=== PATIENT | male | born 1965 | race African-American/Black ===

== ENCOUNTER 2019-12-16 17:12 | Emergency (ER) | payer OTHER ==
[2019-12-16 18:03] LABS: ABSOLUTE BASOPHILS # (AUTO) 0.1 10^3/uL (0.0-0.2); ABSOLUTE LYMPHOCYTES (AUTO) 2.1 10^3/uL (0.5-4.7); ABSOLUTE MONOCYTES (AUTO) 0.8 10^3/uL (0.1-1.4); ABSOLUTE NEUT (AUTO) 14.5 10^3/uL (1.7-8.2); BASOPHILS % (AUTO) 0.8 % (0-2); EOSINOPHILS % (AUTO) 0.1 % (0-6); HEMATOCRIT 46.7 % (37.9-51.0); HEMOGLOBIN 15.4 g/dL (13.5-17.0); LYMPHOCYTES % (AUTO) 12.1 % (13-45); MEAN CORPUSCULAR HEMOGLOBIN 28.2 pg (27.0-33.4); MEAN CORPUSCULAR HGB CONC 33.1 g/dL (32.0-36.0); MEAN CORPUSCULAR VOLUME 85 fl (80-97); MONOCYTES % (AUTO) 4.7 % (3-13); PLATELET COUNT 273 10^3/uL (150-450); RED BLOOD COUNT 5.48 10^6/uL (4.35-5.55); RED CELL DISTRIBUTION WIDTH 12.4 % (11.5-14.0); SEGMENTED NEUTROPHILS % (AUTO) 82.3 % (42-78); TOTAL CELLS COUNTED % (AUTO) 100 %; WHITE BLOOD COUNT 17.6 10^3/uL (4.0-10.5)
[2019-12-16 18:20] LABS: ALBUMIN 4.2 g/dL (3.5-5.0); ALKALINE PHOSPHATASE 111 U/L (38-126); ANION GAP 12 (5-19); ASPARTATE AMINO TRANSFERASE 14 U/L (17-59); BILIRUBIN,TOTAL 1.1 mg/dL (0.2-1.3); BLOOD UREA NITROGEN 10 mg/dL (7-20); CALCIUM 9.6 mg/dL (8.4-10.2); CARBON DIOXIDE 23 mmol/L (22-30); CHLORIDE 98 mmol/L (98-107); CREATINE KINASE 38 U/L (55-170); POTASSIUM 4.5 mmol/L (3.6-5.0); TOTAL PROTEIN 7.7 g/dL (6.3-8.2)
[2019-12-16 18:28] LABS: GLUCOSE 426 mg/dL (75-110)
[2019-12-16 18:32] LABS: CREATINE KINASE MB 0.54 ng/mL (<4.55)
[2019-12-16 18:33] LABS: TROPONIN I < 0.012 ng/mL
--- NOTE | 2019-12-16 19:00 | ER Document Report ---
ED General - General Chief Complaint: Dizziness Stated Complaint: DIZZINESS Time Seen by Provider: 12/16/19 18:14 - HPI Notes: Patient is a 54-year-old male who presents to the emergency department for evaluation of difficulty swallowing, left arm tingling. He states that last night after dinner he started feeling dizzy. He denied any sensation of spinning, states it was really just lightheaded. Later on that night he noticed a change in the sensation of his left upper extremity. He states that something felt hot in his hand, when it was actually cold. He states since then he started having difficulty swallowing as well. He states he feels like his throat is swollen and he cannot swallow. He has a history of stroke with residual left leg weakness and numbness. He states that is unchanged. He has been taking his medications as prescribed. Patient states he has had some intermittent burning in his epigastrium region. He states that he had about 3 episodes of that today. It only lasts a few seconds. Nothing seems to make it better or worse. - Related Data Allergies/Adverse Reactions: No Known Allergies Allergy (Unverified 12/16/19 23:05) Home Medications: Metformin. Amlodipine. Plavix-CVA. Losartan. Atorvastatin. Asa 81mg. Metoprolol. Hydrochlorothiazide Past Medical History - General Information source: Patient - Social History Smoking Status: Never Smoker Chew tobacco use (# tins/day): No Frequency of alcohol use: None Drug Abuse: None Family History: CAD, Hypertension Patient has homicidal ideation: No - Past Medical History Cardiac Medical History: Reports: Hx Coronary Artery Disease, Hx Hypercholesterolemia, Hx Hypertension Denies: Hx Atrial Fibrillation Pulmonary Medical History: Denies: Hx Asthma, Hx COPD Neurological Medical History: Reports: Hx Cerebrovascular Accident - Residual left leg weakness and sensation alteration Endocrine Medical History: Reports: Hx Diabetes Mellitus Type 2 Renal/ Medical History: Denies: Hx Kidney Stones, Hx Renal Insufficiency Malignancy Medical History: Reports None GI Medical History: Reports: None Past Surgical History: Reports: Hx Coronary Artery Bypass Graft Review of Systems - Review of Systems Cardiovascular: See HPI Gastrointestinal: See HPI Neurological/Psychological: See HPI -: Yes All other systems reviewed and negative Physical Exam - Vital signs Vitals: Temp Pulse Resp BP Pulse Ox 98.2 F 88 15 152/87 H 97 12/16/19 17:15 12/16/19 17:15 12/16/19 17:15 12/16/19 17:15 12/16/19 17:15 - Notes Notes: Vital signs reviewed, please refer to chart. Head is normocephalic, atraumatic. Pupils equal round, reactive to light. Oral mucosa is moist, uvula is midline. Neck is supple without meningismus. Heart is regular rate and rhythm. Lungs are clear to auscultation bilaterally. Abdomen is soft, nontender, normoactive bowel sounds throughout. Extremities without cyanosis, clubbing. Posterior calves are nontender. Peripheral pulses are equal. Skin is warm and dry. Patient is awake, alert, oriented x3. Cranial nerves II - XII are grossly intact without focal neurological deficits. Strength is plus 5 out of 5 bilateral upper and lower extremities. Sensation is intact. Patellar and Achilles reflexes 2+ on the left, 1+ on the right. Intact [id number], rapid alternating movements, [id number]. Course - Re-evaluation Re-evalutation: 12/16/19 18:59 Patient presents to the emergency department for evaluation. Laboratory investigations and images ordered through stroke protocol. I am concerned as this patient still states he is having difficulty swallowing. He has a history of stroke. I am not finding any clear and obvious neurological deficits beyond those he reports, but the patient has multiple risk factors. I will order an MRI of the brain as CT scan of the head is unremarkable. His symptoms started last night, he is well outside the window for any sort of TPA intervention. Patient's blood glucose is over 400, we will cover this with insulin. He is not showing any signs of acidosis. Patient is stable, we will continue to monitor. 12/16/19 22:45 Patient remained stable. He still feels as if he is having trouble swallowing. He does have a very mild change in sensorium in the left upper extremity. MRI shows area of subacute infarct in the right medulla. I will consult with neurology from [facility]. The patient states he has had a work-up last year in [place]. 12/16/19 22:57 I spoke with Natacha Loyd, nurse practitioner on for neurology. She states the patient can be taken to [facility], admit to medicine. They will see in consult and set up for follow-up. 12/16/19 23:[address] High, medicine physician, who graciously accepted the patient. It is communicated that it may be some time until a bed is available. 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 He does not want to wait to go to [place]. He has elected to sign out AGAINST MEDICAL ADVICE. I explained to him that he could have worsening of his symptoms. I do not have a clear etiology for his stroke. I am unsure as to whether or not he had a complete work-up when he lived in [place]. He voiced understanding to all of this, understands that he has an increased risk of comorbidities and , and still wishes to sign out AGAINST MEDICAL ADVICE. I will obtain on-call neurology information from [facility], and discharge the patient AGAINST MEDICAL ADVICE. He understands he can return to the ED at any time should he change his mind. - Vital Signs Vital signs: Temp Pulse Resp BP Pulse Ox 98.2 F 91 18 166/94 H 95 12/16/19 17:22 12/16/19 20:15 12/16/19 20:15 12/16/19 20:15 12/16/19 20:15 - Laboratory Result Diagrams: 12/16/19 17:53 12/16/19 17:53 Laboratory results interpreted by me: 12/16/19 12/16/19 17:53 17:53 WBC 17.6 H Lymph % (Auto) 12.1 L Absolute Neuts (auto) 14.5 H Seg Neutrophils % 82.3 H Sodium 132.8 L Glucose 426 H* AST 14 L Creatine Kinase 38 L - Diagnostic Test Radiology reviewed: Reports reviewed Radiology results interpreted by me: 12/16/19 22:[address] 12/16/19 18:31 IMPRESSION: NO ACUTE INTRACRANIAL IMAGING FINDINGS. EVIDENCE OF ACUTE STROKE: NO. Head MRI 12/16/19 19:00 IMPRESSION: Small focus of probable acute ischemia of the right medulla greater than eight hours old. Sequela of additional prior insults elsewhere. This may be on the basis of small vessel disease. - EKG Interpretation by Me Additional EKG results interpreted by me: 12/16/19 19:00 Sinus mechanism with rate of 89 bpm. Normal axis. Borderline prolongation of the QT interval. Nonspecific T wave changes, but no ST elevation concerning for infarction. No old studies available for comparison. Discharge - Discharge Clinical Impression: CVA (cerebral vascular accident) Qualifiers: CVA mechanism: unspecified Qualified Code(s): I63.9 - Cerebral infarction, unspecified Hyperglycemia due to type 2 diabetes mellitus Qualifiers: Diabetes mellitus [employer] insulin use: unspecified [facility] insulin use status Qualified Code(s): E11.65 - Type 2 diabetes mellitus with hyperglycemia Disposition: AGAINST MEDICAL ADVICE Admitting Provider: Lennox Instructions: Stroke ([facility]) Additional Instructions: I believe that your symptoms today have been caused by a new stroke. You have elected to leave AGAINST MEDICAL ADVICE, instead of waiting to be transferred to [facility] for further evaluation. Please follow-up with their on-call neurologist - call the neurology group listed below for an outpatient follow-up appointment. If you change your mind, you develop difficulty speaking or seeing, increased difficulty swallowing, difficulty moving an arm or leg, asymmetry of the face, or any other new or concerning symptoms, please return immediately to the emergency department for evaluation. [facility] Neurology
--- NOTE | 2019-12-16 19:15 | RADIOLOGY REPORT (SQ) ---
EXAM DESCRIPTION: CT HEAD WITHOUT IMAGES COMPLETED DATE/TIME: 12/16/2019 5:46 pm REASON FOR STUDY: r/o CVA COMPARISON: None. TECHNIQUE: Axial images acquired through the brain without intravenous contrast. Images reviewed wi th bone, brain and subdural windows. Additional sagittal and coronal reconstructions were generated. Images stored on PACS. All CT scanners at this facility use dose modulation, iterative reconstruction, and/or weight based d osing when appropriate to reduce radiation dose to as low as reasonably achievable (ALARA). [facility]: Dose Right [facility]: CareDose [facility]: Dose Right [facility]: Teradose 4D [facility]: Smart [employer] RADIATION DOSE: CT Rad equipment meets quality standard of care and radiation dose reduction techniq ues were employed. CTDIvol: 53.2 mGy. DLP: 964 mGy-cm. mGy. LIMITATIONS: None. FINDINGS: VENTRICLES: Normal size and contour. CEREBRUM: No masses. No hemorrhage. No midline shift. No evidence for acute infarction. Normal gra y/white matter differentiation. No areas of low density in the white matter. CEREBELLUM: No masses. No hemorrhage. No alteration of density. No evidence for acute infarction. EXTRAAXIAL SPACES: No fluid collections. No masses. ORBITS AND GLOBE: No intra- or extraconal masses. Normal contour of globe without masses. CALVARIUM: No fracture. PARANASAL SINUSES: No fluid or mucosal thickening. SOFT TISSUES: No mass or hematoma. OTHER: No other significant finding. IMPRESSION: NO ACUTE INTRACRANIAL IMAGING FINDINGS. EVIDENCE OF ACUTE STROKE: NO. COMMENT: Quality ID # 436: Final reports with documentation of one or more dose reduction techniques (e.g., Automated exposure control, adjustment of the mA and/or kV according to patient size, use of iterative reconstruction technique) TECHNICAL DOCUMENTATION: JOB ID: [id number] 2010 [employer]- All Rights Reserved Reading location - IP/workstation name: [email or web address]
--- NOTE | 2019-12-16 20:28 | RADIOLOGY REPORT (SQ) ---
EXAM DESCRIPTION: MR BRAIN WITHOUT IV CONTRAST COMPLETED DATE/TME: 12/16/2019 19:00 CLINICAL HISTORY: 54 years, Male, dysphagia, left arm sensation change EXAM DESCRIPTION: CLINICAL HISTORY: dysphagia, left arm sensation change COMPARISON: None TECHNIQUE: Multiplanar multisequence imaging of the brain without the intravenous administration of contrast. FINDINGS: There is a focus of abnormally restricted diffusion measuring approximately 4 mm in the right medulla. There is probable subtle corresponding mild reduction in ADC signal. There is corresponding increased T2 signal consistent with ischemia greater than eight hours old. Patient motion limits detail. No other evidence of acute ischemia elsewhere. Scattered foci of increased T2 signal intensity elsewhere do not exert significant mass effect on surrounding structures and may be sequela of prior insult, most likely on the basis of small vessel disease. There is no other evidence of acute mass, mass effect, midline shift or hemorrhage. No focal abnormal extra-axial fluid collection is seen. The ventricles, basal cisterns and extra-axial fluid spaces are normal in size and configuration. IMPRESSION: Small focus of probable acute ischemia of the right medulla greater than eight hours old. Sequela of additional prior insults elsewhere. This may be on the basis of small vessel disease.
--- NOTE | 2019-12-16 22:07 | EKG REPORT ---
SEVERITY:- BORDERLINE ECG - SINUS RHYTHM BORDERLINE T ABNORMALITIES, ANT-LAT LEADS BORDERLINE PROLONGED QT INTERVAL : Confirmed by: Tawanda Lopez 16-Dec-2019 22:06:20
[2019-12-17 00:14] VITALS: BP 169/118
== END 2019-12-17 00:15 | disposition left against medical advice (07) ==
LOC: ER 17:12
DX: I63.9 Cerebral infarction, unspecified (principal); E11.65 Type 2 diabetes mellitus with hyperglycemia; R42 Dizziness and giddiness; R20.2 Paresthesia of skin; I69.954 Hemiplegia and hemiparesis following unspecified cerebrovascular disease affecting left non-dominant side; I69.998 Other sequelae following unspecified cerebrovascular disease; R20.8 Other disturbances of skin sensation; E78.00 Pure hypercholesterolemia, unspecified; I10 Essential (primary) hypertension; Z79.4 Long term (current) use of insulin; Z79.82 Long term (current) use of aspirin; Z79.02 Long term (current) use of antithrombotics/antiplatelets; Z95.1 Presence of aortocoronary bypass graft
CPT/HCPCS: 36415; 70450; 70551; 80053; 82550; 82553; 84484; 85025; 93005; 93010; 99284

== ENCOUNTER 2019-12-19 15:34 | Inpatient (IN) | payer OTHER ==
--- NOTE | 2019-12-19 16:00 | ER Document Report ---
Doctor's Note Notes: 12/19/19 15:[address]iologist [address] states that CT head is negative.
--- NOTE | 2019-12-19 16:05 | RADIOLOGY REPORT (SQ) ---
EXAM DESCRIPTION: CT HEAD WITHOUT IMAGES COMPLETED DATE/TIME: 12/19/2019 3:44 pm REASON FOR STUDY: STROKE ALERT COMPARISON: 12/16/2019 TECHNIQUE: Axial images acquired through the brain without intravenous contrast. Images reviewed wi th bone, brain and subdural windows. Additional sagittal and coronal reconstructions were generated. Images stored on PACS. All CT scanners at this facility use dose modulation, iterative reconstruction, and/or weight based d osing when appropriate to reduce radiation dose to as low as reasonably achievable (ALARA). [facility]: Dose Right [facility]: CareDose [facility]: Dose Right [facility]: Teradose 4D [facility]: Re[employer] RADIATION DOSE: mGy. LIMITATIONS: None. FINDINGS: VENTRICLES: Prominent. CEREBRUM: No masses. No hemorrhage. No midline shift. Areas of low density in the white matter mos t likely due to chronic micro-vascular ischemic change. No evidence for acute infarction. CEREBELLUM: No masses. No hemorrhage. No alteration of density. No evidence for acute infarction. EXTRAAXIAL SPACES: Mild age-related involutional change. No fluid collections. No masses. ORBITS AND GLOBE: No intra- or extraconal masses. Normal contour of globe without masses. CALVARIUM: No fracture. PARANASAL SINUSES: No fluid or mucosal thickening. SOFT TISSUES: No mass or hematoma. OTHER: No other significant finding. IMPRESSION: MILD CHRONIC CHANGES OF ATROPHY AND MICROVASCULAR ISCHEMIA. NO ACUTE PROCESS. EVIDENCE OF ACUTE STROKE: NO. COMMENT: Pertinent positive or negative findings of the imaging study reported as a CRITICAL EXAM shreya Fallon at15:58 on 12/19/2019. Category of Critical Exam: Code stroke TECHNICAL DOCUMENTATION: JOB ID: [id number] Quality ID # [id number]: Final reports with documentation of one or more dose reduction techniques (e.g., Au tomated exposure control, adjustment of the mA and/or kV according to patient size, use of iterative reconstruction technique) 2010 [employer]- All Rights Reserved Reading location - IP/workstation name: [email or web address]
--- NOTE | 2019-12-19 16:06 | RADIOLOGY REPORT (SQ) ---
EXAM DESCRIPTION: CHEST SINGLE VIEW IMAGES COMPLETED DATE/TIME: 12/19/2019 3:52 pm REASON FOR STUDY: STROKE ALERT COMPARISON: None. EXAM PARAMETERS: NUMBER OF VIEWS: One view. TECHNIQUE: Single frontal radiographic view of the chest acquired. RADIATION DOSE: NA LIMITATIONS: None. FINDINGS: LUNGS AND PLEURA: No opacities, masses or pneumothorax. No pleural effusion. MEDIASTINUM AND HILAR STRUCTURES: No masses. Contour normal. HEART AND VASCULAR STRUCTURES: Heart normal in size. Normal vasculature. BONES: No acute findings. HARDWARE: Sternotomy wires. OTHER: No other significant finding. IMPRESSION: NO ACUTE RADIOGRAPHIC FINDING IN THE CHEST. TECHNICAL DOCUMENTATION: JOB ID: [id number] 2010 [employer]- All Rights Reserved Reading location - IP/workstation name: [email or web address]
[2019-12-19 16:16] LABS: ABSOLUTE BASOPHILS # (AUTO) 0.1 10^3/uL (0.0-0.2); ABSOLUTE LYMPHOCYTES (AUTO) 2.3 10^3/uL (0.5-4.7); ABSOLUTE MONOCYTES (AUTO) 0.8 10^3/uL (0.1-1.4); ABSOLUTE NEUT (AUTO) 12.7 10^3/uL (1.7-8.2); BASOPHILS % (AUTO) 0.6 % (0-2); EOSINOPHILS % (AUTO) 0.1 % (0-6); HEMATOCRIT 49.4 % (37.9-51.0); HEMOGLOBIN 16.3 g/dL (13.5-17.0); LYMPHOCYTES % (AUTO) 14.4 % (13-45); MEAN CORPUSCULAR HEMOGLOBIN 28.3 pg (27.0-33.4); MEAN CORPUSCULAR HGB CONC 32.9 g/dL (32.0-36.0); MEAN CORPUSCULAR VOLUME 86 fl (80-97); MONOCYTES % (AUTO) 5.3 % (3-13); PLATELET COUNT 299 10^3/uL (150-450); RED BLOOD COUNT 5.75 10^6/uL (4.35-5.55); RED CELL DISTRIBUTION WIDTH 12.7 % (11.5-14.0); SEGMENTED NEUTROPHILS % (AUTO) 79.6 % (42-78); TOTAL CELLS COUNTED % (AUTO) 100 %; WHITE BLOOD COUNT 15.9 10^3/uL (4.0-10.5)
[2019-12-19 16:20] LABS: INTERNATIONAL RATION (INR) 1.04; PROTHROMBIN TIME 13.7 SEC (11.4-15.4)
[2019-12-19 16:27] LABS: VENOUS BLOOD BASE EXCESS -3.1 mmol/L; VENOUS BLOOD PCO2 44.6 mmHg (35-63); VENOUS BLOOD PH 7.33 (7.30-7.42)
[2019-12-19 16:33] LABS: ALBUMIN 4.5 g/dL (3.5-5.0); ALKALINE PHOSPHATASE 107 U/L (38-126); ANION GAP 16 (5-19); ASPARTATE AMINO TRANSFERASE 15 U/L (17-59); BILIRUBIN,DIRECT 0.2 mg/dL (0.0-0.4); BILIRUBIN,TOTAL 1.8 mg/dL (0.2-1.3); BLOOD UREA NITROGEN 27 mg/dL (7-20); CARBON DIOXIDE 22 mmol/L (22-30); CHLORIDE 97 mmol/L (98-107); CREATINE KINASE 42 U/L (55-170); POTASSIUM 4.4 mmol/L (3.6-5.0); TOTAL PROTEIN 8.4 g/dL (6.3-8.2)
--- NOTE | 2019-12-19 16:41 | ER Document Report ---
ED General - General Chief Complaint: S/S of Possible Stroke Stated Complaint: POSSIBLE STROKE Time Seen by Provider: 12/19/19 16:07 Mode of Arrival: Medic Information source: Patient TRAVEL OUTSIDE OF THE [place] IN LAST 30 DAYS: No - HPI Onset: Other - for the last 3-4 days Onset/Duration: Sudden Quality of pain: No pain Severity: Mild Pain Level: Denies Associated symptoms: Weakness - left sided, Other - numbness and tingling on left side, mild trouble swallowing Exacerbated by: Denies Relieved by: Denies Similar symptoms previously: Yes - with prior strokes Recently seen / treated by doctor: Yes - Patient seen on 12/16/19 for same thing and signed out AMA Notes: 54 year old male with a history of prior CVA (he says he has mild residual weakness from a stroke over a year ago), DM, HTN, HLD, CAD who was seen in this ER on 12/16/19 and diagnosed with an acute stroke by MRI but then signed out AMA here in the ER for continued stroke symptoms. The patient says he has had numbness, tingling, and weakness on his left side and mild trouble swallowing since 12/16/19. The trouble swallowing has improved but the patient's numbness and tingling on his left side has persisted. - Related Data Allergies/Adverse Reactions: No Known Allergies Allergy (Unverified 12/16/19 23:05) Past Medical History - General Information source: Patient - Social History Smoking Status: Never Smoker Frequency of alcohol use: None Drug Abuse: None Lives with: Family Family History: CAD, Hypertension Patient has homicidal ideation: No - Past Medical History Cardiac Medical History: Reports: Hx Coronary Artery Disease, Hx Hypercholesterolemia, Hx Hypertension Denies: Hx Atrial Fibrillation Pulmonary Medical History: Denies: Hx Asthma, Hx COPD Neurological Medical History: Reports: Hx Cerebrovascular Accident - Residual left leg weakness and sensation alteration Endocrine Medical History: Reports: Hx Diabetes Mellitus Type 2 Renal/ Medical History: Denies: Hx Kidney Stones, Hx Renal Insufficiency Past Surgical History: Reports: Hx Coronary Artery Bypass Graft Review of Systems - Review of Systems Constitutional: No symptoms reported EENT: No symptoms reported Cardiovascular: No symptoms reported Respiratory: No symptoms reported Gastrointestinal: No symptoms reported Genitourinary: No symptoms reported Male Genitourinary: No symptoms reported Musculoskeletal: No symptoms reported Skin: No symptoms reported Hematologic/Lymphatic: No symptoms reported Neurological/Psychological: Weakness - left side, Numbness - left side, Tingling - left side, Other - mild trouble swallowing -: Yes All other systems reviewed and negative Physical Exam - Vital signs Vitals: Resp BP Pulse Ox 15 162/102 H 100 12/19/19 15:45 12/19/19 15:45 12/19/19 15:45 - Notes Notes: GENERAL: Well-appearing, well-nourished and in no acute distress. HEAD: Atraumatic, normocephalic. EYES: Pupils equal round and reactive to light, extraocular movements intact, sclera anicteric, conjunctiva are normal. ENT: TMs normal, nares patent, oropharynx clear without exudates. Moist mucous membranes. NECK: Normal range of motion, supple without lymphadenopathy or JVD. LUNGS: Breath sounds clear to auscultation bilaterally and equal. No wheezes rales or rhonchi. HEART: Regular rate and rhythm without murmurs, rubs or gallops. ABDOMEN: Soft, nontender, normoactive bowel sounds. No guarding, no rebound. No masses appreciated. EXTREMITIES: Normal range of motion, no pitting or edema. No clubbing or cyanosis. NEUROLOGICAL: Cranial nerves II through XII grossly intact. Normal speech, normal gait. Patient is endorsing weakness on his left but he has 5/5 strength in his Left Upper and Lower Extremities on my exam. NIH stroke scale of 1 for numbness and tingling on left side. PSYCH: Normal mood, normal affect. SKIN: Warm, Dry, normal turgor, no rashes or lesions noted. Course - Re-evaluation Re-evalutation: 12/19/19 17:55 The patient was seen in this ER on 12/16/19 for left sided weakness, numbness, tingling and trouble swallowing. The patient had an MRI then showing an acute stroke. The patient was going to be transferred/admitted on 12/16/19 but he signed out AMA due to having no one to take care of his son. The patient is willing to be admitted today. The patient is clearly not a TPA candidate or an interventional Neurology candidate since he is 3 days out from his stroke. Patient is hyperglycemic today and he is in acute renal failure compared to 12/16/19. - Vital Signs Vital signs: Temp Pulse Resp BP Pulse Ox 98.0 F 101 H 9 L 139/97 H 100 12/19/19 15:56 12/19/19 16:09 12/19/19 17:00 12/19/19 17:00 12/19/19 17:00 - Laboratory Result Diagrams: 12/19/19 15:45 12/19/19 15:45 Laboratory results interpreted by me: 12/19/19 12/19/19 15:45 15:45 WBC 15.9 H RBC 5.75 H Absolute Neuts (auto) 12.7 H Seg Neutrophils % 79.6 H Sodium 134.7 L Chloride 97 L BUN 27 H Creatinine 1.26 H Est GFR (MDRD) Non-Af 59 L Glucose 451 H* Total Bilirubin 1.8 H AST 15 L Creatine Kinase 42 L Total Protein 8.4 H - Diagnostic Test Radiology reviewed: Image reviewed, Reports reviewed - EKG Interpretation by Me EKG shows normal: Sinus rhythm, [place], Intervals Rate: Normal Rhythm: NSR Additional EKG results interpreted by me: 12/19/19 17:47 T wave inversions ins V1-V4, prolonged QT Discharge - Discharge Clinical Impression: Hyperglycemia CVA (cerebral vascular accident) Qualifiers: CVA mechanism: unspecified Qualified Code(s): I63.9 - Cerebral infarction, unspecified Condition: Stable Disposition: ADMITTED INPATIENT Admitting Provider: Duane (Hospitalist) Unit Admitted: [facility]
[2019-12-19 16:44] LABS: CREATINE KINASE MB 0.62 ng/mL (<4.55)
[2019-12-19 16:45] LABS: GLUCOSE 451 mg/dL (75-110)
[2019-12-19 16:46] LABS: TROPONIN I < 0.012 ng/mL
[2019-12-19] MEDS ORDERED: INSULIN REG, HUMAN 100 UNIT/ML 3 ML VIAL (PYX) SUBCUT ONE (16:54)
[2019-12-19] MEDS ORDERED: NORMAL SALINE 1000 ML 1,000 ML IV ONE ×2 (16:54→17:48)
[2019-12-19] MEDS ORDERED: LABETALOL HCL INJ 20 MG/4 ML DISP.SYRIN IV PRN (17:56)
[2019-12-19] MEDS ORDERED: DEXTROSE 50%-WATER 25 GM/50 ML DISP.SYRIN IV PRN ×2 (17:56)
[2019-12-19] MEDS ORDERED: DEXTROSE 40% GEL 15 GM TUBE PO PRN ×2 (17:56)
[2019-12-19] MEDS ORDERED: GLUCAGON,HUMAN RECOMB 1 MG INJ SUBCUT PRN (17:56)
--- NOTE | 2019-12-19 17:56 | PDOC H&P ---
History of Present Illness Admission Date/PCP: 12/19/19 17:16 Patient complains of: Left-sided paresthesia and weakness History of Present Illness: NILO LEVINE is a 54 year old male with a history of type 2 diabetes mellitus, hypertension, CAD status post CABG 2014, presents to the hospital for evaluation of a stroke. Patient reports that he started having acute onset dizziness, left arm and left leg paresthesia/numbness as well as left-sided weakness 2 days ago on Wednesday. Since then, he has also noticed increased difficulty managing his oral secretions and often realizes that when he swallows he has a hard time getting his secretions down and sometimes has to spit it up frequently. He presented to the ER 2 days ago and was diagnosed with aN acute stroke. However patient ended up leaving AMA as he stated that he had to take care of a family member. He returns today to follow-up in regards to his recent diagnosis of stroke. He states that he has been taking all his medications except for in the past 2 days because of difficulty managing his secretions. Denies chest pain or cough. Past Medical History Cardiac Medical History: Reports: Coronary Artery Disease, Hyperlipidema, Hypertension Denies: Atrial Fibrillation Pulmonary Medical History: Denies: Asthma, Chronic Obstructive Pulmonary Disease (COPD) Endocrine Medical History: Reports: Diabetes Mellitus Type 2 Past Surgical History Past Surgical History: Reports: Coronary Artery Bypass Graft Social History Lives with: Family Smoking Status: Never Smoker Frequency of Alcohol Use: None Hx Recreational Drug Use: No Hx Prescription Drug Abuse: No - Advance Directive Resuscitation Status: Full Code Family History Family History: CAD, Hypertension Parental Family History Reviewed: Yes Children Family History Reviewed: Unknown Sibling(s) Family History Reviewed.: Unknown Medication/Allergy Allergies/Adverse Reactions: No Known Allergies Allergy (Unverified 12/16/19 23:05) Review of Systems Constitutional: ABSENT: chills, fever(s) Eyes: ABSENT: visual disturbances Ears: ABSENT: hearing changes Nose, Mouth, and Throat: ABSENT: vertigo Cardiovascular: ABSENT: chest pain Respiratory: ABSENT: cough, dyspnea Gastrointestinal: PRESENT: nausea. ABSENT: abdominal pain, diarrhea, vomiting Genitourinary: ABSENT: dysuria Musculoskeletal: ABSENT: joint swelling Neurological: PRESENT: dizziness, focal weakness. ABSENT: confusion Psychiatric: ABSENT: anxiety Endocrine: PRESENT: polyuria Allergic/Immunologic: ABSENT: seasonal rhinorrhea Physical Exam Vital Signs: Temp Pulse Resp BP Pulse Ox 98.0 F 101 H 9 L 139/97 H 100 12/19/19 15:56 12/19/19 16:09 12/19/19 17:00 12/19/19 17:00 12/19/19 17:00 Intake & Output 12/18/19 12/19/19 12/20/19 06:59 06:59 06:59 Weight 122.9 kg General appearance: PRESENT: no acute distress, cooperative Head exam: PRESENT: normocephalic Eye exam: PRESENT: PERRLA. ABSENT: scleral icterus Mouth exam: PRESENT: neck supple Neck exam: ABSENT: JVD Respiratory exam: PRESENT: clear to auscultation rosangela, symmetrical, unlabored. ABSENT: tachypnea Cardiovascular exam: PRESENT: +S1, +S2, tachycardia. ABSENT: irregular rhythm GI/Abdominal exam: PRESENT: soft. ABSENT: rebound, rigid, tenderness Extremities exam: ABSENT: calf tenderness Neurological exam: PRESENT: alert, awake, oriented to person, oriented to place, oriented to time, oriented to situation, motor sensory deficit - 4-5 over 5 in left upper and lower extremities. 5/5 in right side.. ABSENT: ataxia, aphasic Psychiatric exam: ABSENT: agitated, anxious Focused psych exam: ABSENT: pressured speech Skin exam: ABSENT: jaundice Results Laboratory Results: 12/19/19 15:45 12/19/19 15:45 12/19/19 12/19/19 12/19/19 15:45 15:45 15:45 WBC 15.9 H RBC 5.75 H Hgb 16.3 Hct 49.4 MCV 86 MCH 28.3 MCHC 32.9 RDW 12.7 Plt Count 299 Seg Neutrophils % 79.6 H VBG pH VBG pCO2 VBG HCO3 VBG Base Excess Sodium 134.7 L Potassium 4.4 Chloride 97 L Carbon Dioxide 22 Anion Gap 16 BUN 27 H Creatinine 1.26 H Est GFR ( Amer) > 60 Glucose 451 H* Lactic Acid 1.9 Calcium 10.0 Total Bilirubin 1.8 H AST 15 L Alkaline Phosphatase 107 Total Protein 8.4 H Albumin 4.5 12/19/19 15:45 WBC RBC Hgb Hct MCV MCH MCHC RDW Plt Count Seg Neutrophils % VBG pH 7.33 VBG pCO2 44.6 VBG HCO3 23.0 VBG Base Excess -3.1 Sodium Potassium Chloride Carbon Dioxide Anion Gap BUN Creatinine Est GFR ( Amer) Glucose Lactic Acid Calcium Total Bilirubin AST Alkaline Phosphatase Total Protein Albumin 12/19/19 12/19/19 15:45 15:45 Creatine Kinase 42 L CK-MB (CK-2) 0.62 Troponin I < 0.012 Impressions: Chest X-Ray 12/19/19 00:00 IMPRESSION: NO ACUTE RADIOGRAPHIC FINDING IN THE CHEST. Head CT 12/19/19 00:00 IMPRESSION: MILD CHRONIC CHANGES OF ATROPHY AND MICROVASCULAR ISCHEMIA. NO ACUTE PROCESS. EVIDENCE OF ACUTE STROKE: NO. Assessment and Plan - Diagnosis (1) Acute ischemic stroke Is this a current diagnosis for this admission?: Yes Plan: Occurred 2 days ago. MRI of the brain showing acute ischemic stroke involving the right medulla. Head CT scan today is negative. We will start patient on stroke work-up with CTA head and neck as well as echo, swallow evaluation, PT and Occupational Therapy. Check lipid panel Start on aspirin Plavix and atorvastatin Monitor on telemetry and check EKG (2) Hyperglycemia due to type 2 diabetes mellitus Qualifiers: Diabetes mellitus long goods drier insulin use: unspecified long goods drier insulin use status Qualified Code(s): E11.65 - Type 2 diabetes mellitus with hyperglycemia Is this a current diagnosis for this admission?: Yes Plan: Poorly controlled with blood sugar in the 450s. Hold metformin. Start sliding scale insulin and Lantus. Check hemoglobin A1c. Accu-Cheks. (3) Poorly-controlled hypertension Is this a current diagnosis for this admission?: Yes Plan: Patient is already out of the permissive hypertension. Will focus on trying to correct patient's blood pressure. Awaiting med rec (4) CAD (coronary artery disease) Qualifiers: Coronary Disease-Associated Artery/Lesion type: [place] artery [place] vs. transplanted heart: [place] heart Associated angina: angina presence unspecified Qualified Code(s): I25.10 - Atherosclerotic heart disease of [place] coronary artery without angina pectoris Is this a current diagnosis for this admission?: Yes Plan: Reports history of CABG. On aspirin. Will monitor. (5) ADRIENNE (acute kidney injury) Is this a current diagnosis for this admission?: Yes Plan: Creatinine 1.2 today which is significantly elevated from 2 days ago. Will give IV fluids and repeat metabolic panel in the morning. - Time Time Spent with patient: 35 or more minutes
[2019-12-19] MEDS ORDERED: LOSARTAN POTASSIUM 50 MG TABLET PO ONE (19:30)
[2019-12-19] MEDS ORDERED: INSULIN GLARGINE,HUM.REC.ANLOG 1,000 UNIT/10 ML VIAL SUBCUT SCH (19:30)
--- NOTE | 2019-12-19 19:31 | RADIOLOGY REPORT (SQ) ---
EXAM DESCRIPTION: CTA NECK IMAGES COMPLETED DATE/TIME: 12/19/2019 6:51 pm REASON FOR STUDY: ACUTE CVA COMPARISON: None. TECHNIQUE: Axial dynamic scanning technique with dynamic contrast enhancement through the extra-stagecraft professor nial carotid and vertebral arteries. Multiplanar reconstruction. 3-D MIPS and Volume-rendered imag es acquired at the workstation and saved to PACS. Images are reviewed in soft tissue, bone, lung w indows. All CT scanners at this facility use dose modulation, iterative reconstruction, and/or weight based d osing when appropriate to reduce radiation dose to as low as reasonably achievable (ALARA). [facility]: Dose Right [facility]: CareDose [facility]: Dose Right [facility]: Teradose 4D [facility]: [place] CONTRAST TYPE AND DOSE: 70 cc Omnipaque 350- low osmolar. RENAL FUNCTION: BUN 27 creatinine 1.26 LIMITATIONS: None. FINDINGS: AORTIC ARCH: Normal three-vessel origin. Bilateral subclavian arteries are patent. No d issection. RIGHT CAROTIDS: Patent common, internal and external carotid arteries without suggestion of significa nt stenosis or irregular plaque. No dissection. RIGHT VERTEBRAL: Right vertebral artery appears to terminate at the PICA. LEFT CAROTIDS: Patent common, internal and external carotid arteries without suggestion of significan t stenosis or irregular plaque. No dissection. LEFT VERTEBRAL: Patent. No dissection. OTHER: No other significant finding. OTHER: 3-D reconstructions confirm findings. IMPRESSION: The carotid arteries are normal with no significant stenoses. The right vertebral arter y appears to terminate at the PICA has a developmental variant. COMMENT: Quality ID #[id number]: Measurements of distal internal carotid diameter were used as the denomina tor for stenosis measurement. TECHNICAL DOCUMENTATION: JOB ID: [id number] Quality ID # [id number]: Final reports with documentation of one or more dose reduction techniques (e.g., Au tomated exposure control, adjustment of the mA and/or kV according to patient size, use of iterative reconstruction technique) 2010 [employer]- All Rights Reserved Reading location - IP/workstation name: [email or web address]
--- NOTE | 2019-12-19 19:35 | RADIOLOGY REPORT (SQ) ---
EXAM DESCRIPTION: CTA HEAD IMAGES COMPLETED DATE/TIME: 12/19/2019 6:50 pm REASON FOR STUDY: acute cva COMPARISON: None. TECHNIQUE: Post IV contrast scanning, thin section axial imaging through the brain to evaluate the a rterial structures. Source and MIP images are saved and reviewed on PACS. Advanced 3D imaging as volume-rendering, MIPs, SSD performed? No All CT scanners at this facility use dose modulation, iterative reconstruction, and/or weight based d osing when appropriate to reduce radiation dose to as low as reasonably achievable (ALARA). [facility]: Dose Right [facility]: CareDose [facility]: Dose Right [facility]: Teradose 4D [facility]: [employer] CONTRAST TYPE AND DOSE: contrast/concentration: Isovue 350.00 mmol/ml; Total Contrast Delivered: 70. 0 ml; Total Saline Delivered: 62.0 ml 70 cc Omnipaque 350- low osmolar. RENAL FUNCTION: BUN 27 creatinine 1.26 LIMITATIONS: None. FINDINGS: [place]: The anterior, middle, posterior cerebral arteries are all patent. No ev idence of aneurysm or focal stenosis. POSTERIOR CIRCULATION: The left distal vertebral artery and basilar artery are patent. The right [place] tebral artery appears to terminate at the PICA. BRAIN: No gross enhancing lesions as visualized. The superior cerebral hemispheres are not included in the field of view. BONES: Intact as visualized. SINUSES: No fluid or mucosal thickening. OTHER: No other significant finding. IMPRESSION: No evidence of stenosis or aneurysm of the [place]. The right vertebral artery appears to terminate at the PICA. TECHNICAL DOCUMENTATION: JOB ID: [id number] Quality ID # [id number]: Final reports with documentation of one or more dose reduction techniques (e.g., Au tomated exposure control, adjustment of the mA and/or kV according to patient size, use of iterative reconstruction technique) 2010 [employer]- All Rights Reserved Reading location - IP/workstation name: [email or web address]
[2019-12-19] MEDS: NORMAL SALINE 1000 ML 1,000 ML IV PRN (21:01)
[2019-12-19] MEDS: HYDROCHLOROTHIAZIDE 12.5 MG TABLET PO SCH (21:44)
[2019-12-19] MEDS ORDERED: AMLODIPINE BESYLATE 5 MG TABLET PO ONE (22:00)
[2019-12-19] MEDS ORDERED: ATORVASTATIN CALCIUM 40 MG TABLET PO SCH (22:00)
[2019-12-19] MEDS: FAMOTIDINE 20 MG TABLET PO SCH (22:22)
[2019-12-19] MEDS: HEPARIN SOD (PORCINE) 5,000 UNIT/ML 1 ML VIAL SUBCUT SCH (22:22)
[2019-12-19] MEDS: INSULIN LISPRO 100 UNIT/ML 3 ML VIAL SUBCUT SCH (22:23)
[2019-12-19] MEDS: METOPROLOL TARTRATE 50 MG TABLET PO SCH (22:38)
--- NOTE | 2019-12-20 02:26 | EKG REPORT ---
SEVERITY:- ABNORMAL ECG - SINUS RHYTHM NONSPECIFIC T ABNORMALITIES, ANTERIOR LEADS PROLONGED QT INTERVAL : Confirmed by: Leigha Conley MD 20-Dec-2019 02:25:56
[2019-12-20] MEDS: HEPARIN SOD (PORCINE) 5,000 UNIT/ML 1 ML VIAL SUBCUT SCH (06:14)
[2019-12-20 07:00] LABS: ABSOLUTE EOSINOPHILS # (AUTO) 0.1 10^3/uL (0.0-0.6); ABSOLUTE LYMPHOCYTES (AUTO) 2.4 10^3/uL (0.5-4.7); ABSOLUTE MONOCYTES (AUTO) 0.6 10^3/uL (0.1-1.4); ABSOLUTE NEUT (AUTO) 8.3 10^3/uL (1.7-8.2); BASOPHILS % (AUTO) 0.3 % (0-2); EOSINOPHILS % (AUTO) 0.7 % (0-6); HEMATOCRIT 44.6 % (37.9-51.0); HEMOGLOBIN 14.9 g/dL (13.5-17.0); LYMPHOCYTES % (AUTO) 21.1 % (13-45); MEAN CORPUSCULAR HEMOGLOBIN 28.4 pg (27.0-33.4); MEAN CORPUSCULAR HGB CONC 33.3 g/dL (32.0-36.0); MEAN CORPUSCULAR VOLUME 85 fl (80-97); MONOCYTES % (AUTO) 4.9 % (3-13); PLATELET COUNT 257 10^3/uL (150-450); RED BLOOD COUNT 5.23 10^6/uL (4.35-5.55); RED CELL DISTRIBUTION WIDTH 12.6 % (11.5-14.0); TOTAL CELLS COUNTED % (AUTO) 100 %; WHITE BLOOD COUNT 11.3 10^3/uL (4.0-10.5)
[2019-12-20] MEDS: NORMAL SALINE 1000 ML 1,000 ML IV PRN (07:00)
[2019-12-20 07:35] LABS: ALBUMIN 3.9 g/dL (3.5-5.0); ALKALINE PHOSPHATASE 84 U/L (38-126); ANION GAP 9 (5-19); ASPARTATE AMINO TRANSFERASE 14 U/L (17-59); BLOOD UREA NITROGEN 23 mg/dL (7-20); CALCIUM 9.3 mg/dL (8.4-10.2); CARBON DIOXIDE 24 mmol/L (22-30); CHLORIDE 104 mmol/L (98-107); CHOLESTEROL 159.06 mg/dL (0-200); DIRECT LDL 106 mg/dL (<100); GLUCOSE 161 mg/dL (75-110); POTASSIUM 3.8 mmol/L (3.6-5.0); TOTAL PROTEIN 7.5 g/dL (6.3-8.2); TRIGLYCERIDES 150 mg/dL (<150)
[2019-12-20] MEDS: INSULIN LISPRO 100 UNIT/ML 3 ML VIAL SUBCUT SCH (08:46)
[2019-12-20] MEDS ORDERED: ASPIRIN 81 MG TABLET, ENT COATED PO SCH (10:00)
[2019-12-20] MEDS ORDERED: LOSARTAN POTASSIUM 50 MG TABLET PO SCH ×2 (10:00)
[2019-12-20] MEDS ORDERED: CLOPIDOGREL BISULFATE 75 MG TABLET PO SCH (10:00)
[2019-12-20] MEDS ORDERED: AMLODIPINE BESYLATE 10 MG TABLET PO SCH (10:00)
[2019-12-20] MEDS: FAMOTIDINE 20 MG TABLET PO SCH (10:28)
[2019-12-20] MEDS: METOPROLOL TARTRATE 50 MG TABLET PO SCH (10:28)
[2019-12-20] MEDS: HYDROCHLOROTHIAZIDE 12.5 MG TABLET PO SCH (10:29)
--- NOTE | 2019-12-20 11:13 | EKG REPORT ---
SEVERITY:- ABNORMAL ECG - SINUS RHYTHM ABNORMAL T, CONSIDER ISCHEMIA, ANT-LAT LEADS BORDERLINE PROLONGED QT INTERVAL : Confirmed by: Leigha Conley MD 20-Dec-2019 11:13:07
[2019-12-20 11:37] VITALS: BP 145/91
--- NOTE | 2019-12-20 12:33 | PDOC PROGRESS REPORT ---
Subjective Progress Note for:: 12/20/19 Subjective:: Patient was seen and evaluated by me this morning. Had no complaints at this time. Feel that his swelling was getting to be better. Reason For Visit: CVA (CEREBRAL VASCULAR ACCIDENT), HYPERGLYCEMIA Physical Exam Vital Signs: Temp Pulse Resp BP Pulse Ox 98.1 F 76 25 H 145/91 H 100 12/20/19 06:00 12/20/19 10:00 12/20/19 11:01 12/20/19 11:01 12/20/19 11:00 Intake & Output 12/19/19 12/20/19 12/21/19 06:59 06:59 06:59 Intake Total 3000 1000 Balance 3000 1000 Weight 122.9 kg General appearance: PRESENT: no acute distress Neck exam: ABSENT: JVD Respiratory exam: PRESENT: clear to auscultation rosangela, unlabored. ABSENT: tachypnea, wheezes Cardiovascular exam: PRESENT: RRR, +S1, +S2. ABSENT: tachycardia GI/Abdominal exam: PRESENT: normal bowel sounds, soft. ABSENT: rebound, rigid, tenderness Neurological exam: PRESENT: alert, awake, oriented to person, oriented to place, oriented to time, oriented to situation, CN II-XII grossly intact. ABSENT: ataxia, motor sensory deficit - 4-5 over 5 strength in left upper extremity otherwise normal strength in all extremities., aphasic Psychiatric exam: ABSENT: agitated, anxious Results Laboratory Results: 12/20/19 06:39 12/20/19 06:39 12/19/19 12/19/19 12/19/19 15:45 15:45 15:45 WBC 15.9 H RBC 5.75 H Hgb 16.3 Hct 49.4 MCV 86 MCH 28.3 MCHC 32.9 RDW 12.7 Plt Count 299 Seg Neutrophils % 79.6 H VBG pH VBG pCO2 VBG HCO3 VBG Base Excess Sodium 134.7 L Potassium 4.4 Chloride 97 L Carbon Dioxide 22 Anion Gap 16 BUN 27 H Creatinine 1.26 H Est GFR ( Amer) > 60 Glucose 451 H* Lactic Acid 1.9 Calcium 10.0 Total Bilirubin 1.8 H AST 15 L Alkaline Phosphatase 107 Total Protein 8.4 H Albumin 4.5 Triglycerides Cholesterol LDL Cholesterol Direct VLDL Cholesterol HDL Cholesterol 12/19/19 12/20/19 12/20/19 15:45 06:39 06:39 WBC 11.3 H RBC 5.23 Hgb 14.9 Hct 44.6 MCV 85 MCH 28.4 MCHC 33.3 RDW 12.6 Plt Count 257 Seg Neutrophils % 73.0 VBG pH 7.33 VBG pCO2 44.6 VBG HCO3 23.0 VBG Base Excess -3.1 Sodium 137.3 Potassium 3.8 Chloride 104 Carbon Dioxide 24 Anion Gap 9 BUN 23 H Creatinine 0.89 Est GFR ( Amer) > 60 Glucose 161 H Lactic Acid Calcium 9.3 Total Bilirubin 2.0 H AST 14 L Alkaline Phosphatase 84 Total Protein 7.5 Albumin 3.9 Triglycerides 150 Cholesterol 159.06 LDL Cholesterol Direct 106 H VLDL Cholesterol 30.0 HDL Cholesterol 32 L 12/19/19 12/19/19 12/20/19 15:45 15:45 08:49 Creatine Kinase 42 L CK-MB (CK-2) 0.62 Troponin I < 0.012 < 0.012 Impressions: Chest X-Ray 12/19/19 00:00 IMPRESSION: NO ACUTE RADIOGRAPHIC FINDING IN THE CHEST. Head CT 12/19/19 00:00 IMPRESSION: MILD CHRONIC CHANGES OF ATROPHY AND MICROVASCULAR ISCHEMIA. NO ACUTE PROCESS. EVIDENCE OF ACUTE STROKE: NO. Head CTA 12/19/19 00:00 IMPRESSION: No evidence of stenosis or aneurysm of the [place]. The right vertebral artery appears to terminate at the PICA. Neck CTA 12/19/19 00:00 IMPRESSION: The carotid arteries are normal with no significant stenoses. The right vertebral artery appears to terminate at the PICA has a developmental variant. Assessment and Plan - Diagnosis (1) Acute ischemic stroke Is this a current diagnosis for this admission?: Yes (2) Hyperglycemia due to type 2 diabetes mellitus Qualifiers: Diabetes mellitus retirement insulin use: unspecified retirement insulin use status Qualified Code(s): E11.65 - Type 2 diabetes mellitus with hyperglycemia Is this a current diagnosis for this admission?: Yes (3) Poorly-controlled hypertension Is this a current diagnosis for this admission?: Yes (4) CAD (coronary artery disease) Qualifiers: Coronary Disease-Associated Artery/Lesion type: [place] artery [place] vs. transplanted heart: [place] heart Associated angina: angina presence unspecified Qualified Code(s): I25.10 - Atherosclerotic heart disease of [place] coronary artery without angina pectoris Is this a current diagnosis for this admission?: Yes (5) ADRIENNE (acute kidney injury) Is this a current diagnosis for this admission?: Yes - Plan Summary Summary: Patient was seen and evaluated by me earlier this morning. Head and neck CTA scan was performed which were negative for any significant stenosis Echocardiogram is still pending I have reviewed patient's telemetry which showed no occult arrhythmias and no atrial fibrillation. Check troponin level this morning due to abnormalities in EKG. Evaluated by speech therapist who recommended soft ground diet with thin liquids Pending PT and OT evaluation Blood pressure control needs to be optimized Plan was to start patient on insulin given hemoglobin A1c of 11 - Time Time Spent with patient: 15-24 minutes
--- NOTE | 2019-12-20 12:36 | Left Against Medical Advice ---
Against Medical Advice Admission Date/Time: 12/19/19 17:16 Primary Care Provider: Date of Patient Emigration: 12/20/19 - Diagnosis: (1) Acute ischemic stroke Is this a current diagnosis for this admission?: Yes (2) Hyperglycemia due to type 2 diabetes mellitus Is this a current diagnosis for this admission?: Yes (3) Poorly-controlled hypertension Is this a current diagnosis for this admission?: Yes (4) CAD (coronary artery disease) Is this a current diagnosis for this admission?: Yes (5) ADRIENNE (acute kidney injury) Is this a current diagnosis for this admission?: Yes - Summary: Summary: Please see Admission and Progress Notes as well. NILO LEVINE is a 54 M, who LEFT AGAINST MEDICAL ADVICE. The Patient was admitted on 12/19/19 17:16. After our initial encounter this morning, I was notified by patient's nurse that patient would like to leave AMA because he has an emergency at home. I recommended that he would be in patient's best interest to stay in the hospital so that he can be fully optimized in terms of secondary stroke prevention, adequate diabetes and hypertension control. The nurse explained risk to him but patient still insisted on going. I instructed for patient to wait so that I can at least give him some prescriptions since he had already decided to leave AMA. By the time I printed the prescriptions and went to the ER, patient had absconded AGAINST MEDICAL ADVICE. Informed that patient was too impatient to wait for me to come to bedside and talk to him and signed the A paperwork.
== END 2019-12-20 12:33 | disposition left against medical advice (07) | DRG 65 ==
LOC: ER 15:34 → EH 17:16
PROVIDERS: ADMIT Internal Medicine; ATTEND Internal Medicine
DX: I63.9 Cerebral infarction, unspecified (principal); N17.9 Acute kidney failure, unspecified; E11.65 Type 2 diabetes mellitus with hyperglycemia; R53.1 Weakness; R20.0 Anesthesia of skin; R13.10 Dysphagia, unspecified; I10 Essential (primary) hypertension; I25.10 Atherosclerotic heart disease of native coronary artery without angina pectoris; Z95.1 Presence of aortocoronary bypass graft; Z82.49 Family history of ischemic heart disease and other diseases of the circulatory system
CPT/HCPCS: 36415; 70450; 70496; 70498; 71045; 80053; 80061; 82550; 82553; 82803; 82962; 83036; 83605; 84484; 85025; 85610; 85730; 93005; 93010; 99285; J1644; J1815; J7030